=== PATIENT | female | born 1940 | race Hispanic/Latino ===

== ENCOUNTER 2017-09-10 13:35 | Emergency (ER) | payer OTHER, MEDICARE ==
[2017-09-10] MEDS ORDERED: ONDANSETRON HCL 4 MG/2 ML VIAL ONE (13:56)
[2017-09-10] MEDS ORDERED: MORPHINE SULFATE 2 MG/ML 1ML SYG ONE ×2 (13:56→14:21)
== END 2017-09-10 16:06 | disposition home or self-care (01) ==
LOC: EDH 13:35
DX: S43.084A Other dislocation of right shoulder joint, initial encounter (principal); Z72.0 Tobacco use; W18.39XA Other fall on same level, initial encounter; Y93.89 Activity, other specified; Y92.89 Other specified places as the place of occurrence of the external cause; Y99.8 Other external cause status
CPT/HCPCS: 23650; 73020; 73030; 73060; 96374; 96375; 99284; J2405